=== PATIENT | male | born 1965 | race Caucasian/White ===

== ENCOUNTER 2016-10-27 18:22 | Observation (INO) | payer OTHER ==
[~2016-10-27] VITALS: Ht 170.2 cm; Wt 94.5 kg
[2016-10-27] MEDS ORDERED: ASPI81TA85 PO (18:38)
[2016-10-27] MEDS ORDERED: ROSU20TA PO (18:38)
[2016-10-27] MEDS ORDERED: METO-346 PO (18:38)
[2016-10-27] MEDS ORDERED: NS 1,000 ML IV ONE (20:00)
[2016-10-27] MEDS ORDERED: ONDANSETRON 4MG/2ML VIAL (J2405) IV ONE (20:00)
[2016-10-27] MEDS: MORPHINE 4 MG/ML 1ML SYRINGE IV PRN ×2 (20:00→20:30)
[2016-10-27 20:19] LABS: BASO % 0.5 % (0.0-1.0); EOS # 0.1 K/mm3 (0.0-0.50); LARGE UNSTAINED CELL # 0.1 K/mm3 (0.0-0.4); LARGE UNSTAINED CELL % 1.2 % (0.0-4.0); LYMPH # 1.4 K/mm3 (1.5-4.5); MEAN CORPUSCULAR HEMOGLOBIN 32.4 pg (27.0-33.0); MEAN CORPUSCULAR HGB CONC 35.1 g/dl (32.0-36.5); MEAN CORPUSCULAR VOLUME 92.4 fl (80.0-96.0); MONO # 0.5 K/mm3 (0.0-0.8); MONO % 6.5 % (0.0-5.0); NEUTROPHILS % 71.9 % (36.0-66.0); PLATELET COUNT, AUTOMATED 141 k/mm3 (150-450); RED CELL DISTRIBUTION WIDTH 12.5 % (11.5-14.5); WHITE BLOOD COUNT 6.9 K/mm3 (4.0-10.0)
[2016-10-27 20:36] LABS: ALBUMIN 3.9 GM/DL (3.2-5.2); ALKALINE PHOSPHATASE 106 U/L (45-117); ALT/SGPT 150 U/L (12-78); ANION GAP 8 MEQ/L (8-16); AST/SGOT 189 U/L (15-37); BILIRUBIN,DIRECT 0.6 MG/DL (0.0-0.2); BILIRUBIN,TOTAL 2.3 MG/DL (0.2-1.0); BLOOD UREA NITROGEN 14 MG/DL (7-18); CALCIUM LEVEL 9.1 MG/DL (8.5-10.1); CARBON DIOXIDE LEVEL 27 MEQ/L (21-32); CHLORIDE LEVEL 106 MEQ/L (98-107); CREATININE FOR GFR 1.12 MG/DL (0.70-1.30); GLOMERULAR FILTRATION RATE > 60.0 (>56); GLUCOSE, FASTING 168 MG/DL (70-105); POTASSIUM SERUM 3.9 MEQ/L (3.5-5.1); SODIUM LEVEL 141 MEQ/L (136-145); TOTAL PROTEIN 6.9 GM/DL (6.4-8.2)
--- NOTE | 2016-10-27 20:53 | ECGEPIP ---
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
--- NOTE | 2016-10-27 21:20 | REPUSA ---
Clinical history: Right upper quadrant pain. Findings: The pancreas is limited in visualization secondary to overlying bowel gas. The liver demons trates uniform echotexture and echogenicity, with no mass lesions. The gallbladder is distended but o therwise unremarkable. A sonographic Johnson's sign was elicited. There is no gallbladder wall thicken ing. However, the common bile duct is dilated, measuring 9 mm. The right kidney measures 10.6 cm in l ength and is unremarkable. There is no ascites. Impression: 1. Distended gallbladder,, with positive sonographic Johnson's sign. No gallstones, gallbladder wall t hickening or pericholecystic free fluid. Biliary ductal dilatation is noted as well If there is moises nued clinical concern, MRCP to evaluate the biliary ducts would be helpful.
[2016-10-27] MEDS ORDERED: ASPI81TAEC PO (22:27)
[2016-10-27] MEDS ORDERED: VITMTA PO (22:27)
[2016-10-27] MEDS ORDERED: ACETAMINOPHEN TAB 650MG DOSE (2X325MG) PO PRN (23:15)
[2016-10-27] MEDS ORDERED: ONDANSETRON 4MG/2ML VIAL (J2405) IV PRN (23:15)
[2016-10-27] MEDS: LR 1,000 ML IV SCH (23:15)
[2016-10-27] MEDS: MORPHINE 2 MG/ML 1ML SYRINGE IV PRN (23:20)
[2016-10-27 23:45] VITALS: BP 155/81
[2016-10-28] MEDS: MORPHINE 2 MG/ML 1ML SYRINGE IV PRN ×2 (01:31→04:13)
--- NOTE | 2016-10-28 06:40 | CR.PDOC ---
[facility] Consultation Consultation DATE OF CONSULTATION: Oct 27, 2016 at 18:22 PRIMARY CARE PHYSICIAN: None REFERRING PROVIDER: Dr Arvind Ingram ATTENDING PHYSICIAN: Dr. Vasquez Dickerson REASON FOR CONSULTATION/CHIEF COMPLAINT: Pre-op risk stratification. HISTORY OF PRESENT ILLNESS: Pt is a 51 year-old male with PMH of PERRIN with cirrhosis, HTN, hyperlipidemia, CAD s/p AZ with stents and bypass all in 2009 who presents with abd pain. Pt reports progressively worsening RUQ pain. Pain worse with eating, but no n/v, fevers/chills, diarrhea. Since pt's CABG in 2009 he has occasional chest discomfort, but no exertional cp and no typical chest pain. He does follow with a certified hyperbaric technologist in [place]. ALLERGIES: Please see below. HOME MEDICATIONS: Please see below. PAST MEDICAL HISTORY: 1. PERRIN. 2. Cirrhosis. 3. CAD. 4. HTN 5. Hyperlipidemia. 6. Nephrolithiasis PAST SURGICAL HISTORY: 1. PCI with stent (2009) 2. CABG (2009) FAMILY HISTORY: Non-contributory SOCIAL HISTORY: Tobacco use: ex-smoker ETOH: none REVIEW OF SYSTEMS: CONSTITUTIONAL: Anorexia. HEENT: Neg. CARDIOVASCULAR: Occasional atypical CP. RESPIRATORY: Neg. GENITOURINARY: Neg. MUSCULOSKELETAL: Neg. GASTROINTESTINAL: Abd pain, distention. SKIN: Neg. NEUROLOGICAL: Neg. PSYCHIATRIC: Neg. ENDOCRINE: Neg. HEMATOLOGIC/LYMPHATIC: Neg. ALLERGIC/IMMUNOLOGIC: Neg. PHYSICAL EXAMINATION: VITAL SIGNS: Please see below. GENERAL APPEARANCE: Middle-age male in mild distress. HEENT: Moist mucous membranes. RESPIRATORY: CTA B/L. No wheezes/rales/rhonchi appreciated. CARDIOVASCULAR: Nml S1 S2. No murmur/gallop/rub appreciated. ABDOMEN: Soft. Tender with mild palpation and voluntary guarding. Hypoactive BS. EXTREMITIES: No clubbing/cyanosis/edema. NEUROLOGICAL: CN II-XII grossly intact. AAOx3. Strength 5/5 and equal throughout. PSYCHIATRIC: Normal. LABORATORY DATA: Please see below. ASSESSMENT/PLAN: This is a 51 year-old male with PMH of PERRIN with cirrhosis, HTN , hyperlipidemia, CAD s/p AZ with stents and bypass all in 2009 who presents with abd pain and acute cholecystitis. 1. CAD with CABG (2009) While pt has known disease and had cabg he does not have typical cp and it has been 10yrs since his prior event. Pt's ECG (reviewed by me) NSR @80 with an incomplete LBBB and evidence of his prior AZ. Pt has hx of prior AZ and CABG, but no evidence of unstable angina/typical chest pain which puts him at intermediate risk. Pt may require cholecystectomy (intermediate risk procedure). Given his good MET (>4), he may proceed to OR without additional cardiac work- up. Continue crestor. Continue metoprolol. Resume aspirin as soon as no surgical contraindication. Thank you for allowing us to help in the care of this pt. Will follow with you. Vital Signs/I&O Vital Signs Date Time Temp Pulse Resp B/P (MAP) Pulse Ox O2 Delivery O2 Flow Rate FiO2 10/28/16 04:23 18 10/27/16 23:45 98.8 70 155/81 (105) 98 Room Air I&O- Last 24 Hours up to 6 AM 10/28/16 06:00 Output Total 300 ml Balance -300 ml Laboratory Data Labs 24H Laboratory Tests 2 10/27/16 19:54: White Blood Count 6.9, Red Blood Count 4.80, Hemoglobin 15.6, Hematocrit 44.3, Mean Corpuscular Volume 92.4, Mean Corpuscular Hemoglobin 32.4, Mean Corpuscular Hemoglobin Concent 35.1, Red Cell Distribution Width 12.5, Platelet Count 141L, Neutrophils (%) (Auto) 71.9H, Lymphocytes (%) (Auto) 19.0L, Monocytes (%) (Auto) 6.5H, Eosinophils (%) (Auto) 1.0, Basophils (%) (Auto) 0.5 , Neutrophils # (Auto) 5.0, Lymphocytes # (Auto) 1.4L, Monocytes # (Auto) 0.5, Eosinophils # (Auto) 0.1, Basophils # (Auto) 0.0, Large Unclassified Cells % 1.2 , Large Unclassified Cells # 0.1, Anion Gap 8, Glomerular Filtration Rate > 60.0 , Calcium Level 9.1, Aspartate Amino Transf (AST/SGOT) 189H, Alanine Aminotransferase (ALT/SGPT) 150H, Alkaline Phosphatase 106, Total Bilirubin 2.3H , Direct Bilirubin 0.6H, Total Creatine Kinase 215, Creatine Kinase MB 2.1, Creatine Kinase MB Relative Index 0.97, Troponin I < 0.02, Total Protein 6.9, Albumin 3.9, Albumin/Globulin Ratio 1.30, Lipase 149 CBC/BMP Laboratory Tests 10/27/16 19:54 Red Blood Count 4.80, Mean Corpuscular Volume 92.4, Mean Corpuscular Hemoglobin 32.4, Mean Corpuscular Hemoglobin Concent 35.1, Red Cell Distribution Width 12.5 , Neutrophils (%) (Auto) 71.9 H, Lymphocytes (%) (Auto) 19.0 L, Monocytes (%) ( Auto) 6.5 H, Eosinophils (%) (Auto) 1.0, Basophils (%) (Auto) 0.5, Neutrophils # (Auto) 5.0, Lymphocytes # (Auto) 1.4 L, Monocytes # (Auto) 0.5, Eosinophils # (Auto) 0.1, Basophils # (Auto) 0.0 Allergies Coded Allergies: Atropine (Verified Allergy, Unknown, 10/27/16) Hyoscyamine (Verified Allergy, Unknown, 10/27/16) Phenobarbital (Verified Allergy, Unknown, 10/27/16) Scopolamine (Verified Allergy, Unknown, 10/27/16) Home Medications Scheduled Aspirin (Aspirin EC) 81 Mg Tabec, 81 MG PO DAILY, (Reported) Metoprolol Tartrate (Metoprolol Tartrate) 12.5 Mg Halftab, 12.5 MG PO BID, ( Reported) Multivitamins *[facility] STOCKED* (Thera M Plus *[facility] STOCKED*) 1 Tab Tab, 1 TAB PO DAILY, (Reported) Rosuvastatin Calcium (Rosuvastatin Calcium) 20 Mg Tab, 20 MG PO QHS, (Reported) Vasquez Dickerson MD Oct 28, 2016 06:19
[2016-10-28] MEDS: LR 1,000 ML IV SCH ×2 (07:46→16:16)
[2016-10-28 08:00] VITALS: BP 142/86
[2016-10-28 08:49] LABS: BASO % 0.7 % (0.0-1.0); EOS # 0.1 K/mm3 (0.0-0.50); EOS % 1.6 % (0.0-3.0); LARGE UNSTAINED CELL # 0.1 K/mm3 (0.0-0.4); LARGE UNSTAINED CELL % 1.2 % (0.0-4.0); LYMPH # 1.3 K/mm3 (1.5-4.5); LYMPH % 32.5 % (24.0-44.0); MEAN CORPUSCULAR HEMOGLOBIN 32.5 pg (27.0-33.0); MEAN CORPUSCULAR HGB CONC 35.6 g/dl (32.0-36.5); MEAN CORPUSCULAR VOLUME 91.3 fl (80.0-96.0); MONO # 0.3 K/mm3 (0.0-0.8); MONO % 7.8 % (0.0-5.0); NEUTROPHILS # 2.2 K/mm3 (1.8-7.7); NEUTROPHILS % 56.3 % (36.0-66.0); PLATELET COUNT, AUTOMATED 106 k/mm3 (150-450); RED CELL DISTRIBUTION WIDTH 12.3 % (11.5-14.5); WHITE BLOOD COUNT 3.9 K/mm3 (4.0-10.0)
[2016-10-28 09:50] LABS: ALBUMIN 3.6 GM/DL (3.2-5.2); ALBUMIN/GLOBULIN RATIO 1.38 (1.00-1.93); ALKALINE PHOSPHATASE 109 U/L (45-117); ALT/SGPT 208 U/L (12-78); ANION GAP 8 MEQ/L (8-16); AST/SGOT 185 U/L (15-37); BILIRUBIN,DIRECT 0.9 MG/DL (0.0-0.2); BILIRUBIN,TOTAL 3.1 MG/DL (0.2-1.0); BLOOD UREA NITROGEN 10 MG/DL (7-18); CALCIUM LEVEL 8.5 MG/DL (8.5-10.1); CARBON DIOXIDE LEVEL 26 MEQ/L (21-32); CHLORIDE LEVEL 106 MEQ/L (98-107); CREATININE FOR GFR 0.99 MG/DL (0.70-1.30); GLOMERULAR FILTRATION RATE > 60.0 (>56); GLUCOSE, FASTING 120 MG/DL (70-105); POTASSIUM SERUM 3.8 MEQ/L (3.5-5.1); SODIUM LEVEL 140 MEQ/L (136-145); TOTAL PROTEIN 6.2 GM/DL (6.4-8.2)
[2016-10-28] MEDS: MORPHINE 4 MG/ML 1ML SYRINGE IV PRN ×2 (12:49→15:46)
--- NOTE | 2016-10-28 14:04 | REP ---
MRCP EXAMINATION: HISTORY: Elevated bilirubin. Dilated CBD. Comparison is made with sonography from October 27, [address] study of the abdomen from December 01, 2015. TECHNIQUE: Coronal T2 TRUE FISP and axial T2 HASTE imaging sequences are acquired. In addition, a 3D T2-weighted MRCP examination is acquired and maximal intensity projection images are generated. Coronal source images are reviewed and maximal intensity projection images are generated and reviewed rotationally. MRCP FINDINGS: Intrahepatic biliary radicals are not dilated. The gallbladder is mildly dilated but no stone or polyp is seen. No gallbladder mass is observed. The common bile duct measures 0.8 cm in greatest diameter, which is mildly dilated. The main pancreatic duct is normal. No choledocholithiasis or common bile duct stricture is seen. IMPRESSION: Mildly prominent common bile duct and gallbladder. No stone or mass lesion is seen. Signed by Alfredito Reynolds MD 10/28/2016 05:03 P
[2016-10-28] MEDS ORDERED: NORCO, ANEXSIA 5/325MG TABLET (HYDROcodone/ACETAMINOPHEN) PO PRN (14:45)
--- NOTE | 2016-10-28 15:17 | HPE ---
DATE OF ADMISSION: 10/27/2016 CHIEF COMPLAINT: Right upper quadrant abdominal pain. HISTORY OF PRESENT ILLNESS: This patient is a 51-year-old male with significant past history of nonalcoholic fatty liver disease (PERRIN) with cirrhosis, hypertension, hyperlipidemia and coronary artery disease status post stent and triple bypass. He presents to the emergency room with increasing right upper quadrant abdominal pain that started on Wednesday morning. The pain got worse with eating. No nausea, vomiting, fevers, chills. No diarrhea or constipation. No heartburn or acid reflux. He has never had any pain or symptoms like this ever in the past. Denies any history of alcohol usage within the past few years. No recent travel or injury to the abdomen. No recent illness. No change in medications. The pain was fairly constant. It was not positional. No change with food. PAST MEDICAL HISTORY: Nonalcoholic fatty liver disease (PERRIN) Cirrhosis. Coronary artery disease. Hypertension. Hyperlipidemia. Nephrolithiasis. PAST SURGICAL HISTORY: Cardiac stents followed by triple bypass in 2009. ALLERGIES: ATROPINE, HYOSCYAMINE, PHENOBARBITAL, SCOPOLAMINE. HOME MEDICATIONS: Please seen medical record. SOCIAL HISTORY: Denies drug, alcohol, or tobacco usage. FAMILY HISTORY: Noncontributory. REVIEW OF SYSTEMS: Pertinent positives and negatives, please see history of present illness (HPI). PHYSICAL EXAMINATION: General: Oriented times three in no acute distress. VITAL SIGNS: Temperature 97.8, pulse 65, respirations 18, blood pressure 142/86, pulse ox 98% in room air. HEENT: Pupils equal, round, and reactive to light and accommodation. HEART: S1, S2. Regular rate and rhythm. LUNGS: Clear to auscultation bilaterally. ABDOMEN: Soft, tender to palpation, right upper quadrant. Localized guarding. No rebounding. No signs of peritonitis. EXTREMITIES: No clubbing, cyanosis or edema. LABORATORY DATA: White count 3.9, hemoglobin 14.7, platelets 106. Potassium 3.8, total bilirubin 2.3 yesterday, 3.1 this morning. Direct bilirubin 0.6 yesterday, up to 0.9 this morning. Lipase 149. IMAGING: Ultrasound of the gallbladder shows a dilated gallbladder. No wall thickening. No signs of pericholecystic fluid. There is a positive sonographic Johnson's sign. There is also dilated common bile duct at 9 mm. MRCP shows a mildly prominent common bile duct and gallbladder. No signs of any stones or masses or choledocholithiasis. ASSESSMENT/PLAN: The patient is a 51-year-old male with a history of hypertension, coronary artery disease, myocardial infarction ([place]) who presents with a sudden onset of right upper quadrant abdominal pain. This could be secondary to a gallstone that he has passed, however, it could also be some sort of viral irritation of his PERRIN. From admission to the emergency room to this morning, his liver enzymes have gone up, however, his pain has improved. So he may have passed the stone overnight. MRCP was negative for any signs of choledocholithiasis but ultrasound and MRCP do both show dilated common bile duct. At this point, since his pain has improved, we will start him on a clear liquid diet, repeat his bilirubins in the morning. If they are showing signs of improvement, then he will be discharged home and followup as an outpatient. However, if his bilirubins continue to rise or they stay elevated, then I have already talked with Dr. Dixon who would agree to see him and consider possible ERCP during this admission.
[2016-10-28 16:00] VITALS: BP 142/84
[2016-10-28] MEDS: HEPARIN SOD (PORCINE) 5000 UNITS/ML VIAL SC SCH ×2 (16:16→21:56)
[2016-10-28] MEDS: PANTOPRAZOLE 40MG INJ (PROTONIX) (C9113) IV SCH (16:16)
[2016-10-28 20:00] VITALS: BP 149/80
[2016-10-28] MEDS: SENOKOT S TAB PO SCH (21:00)
[2016-10-29] VITALS: BP 139/79
[2016-10-29] MEDS: LR 1,000 ML IV SCH ×2 (00:16→07:57)
[2016-10-29] MEDS: HEPARIN SOD (PORCINE) 5000 UNITS/ML VIAL SC SCH (06:00)
[2016-10-29 06:57] LABS: MEAN CORPUSCULAR HGB CONC 36.4 g/dl (32.0-36.5); MEAN CORPUSCULAR VOLUME 90.7 fl (80.0-96.0); RED CELL DISTRIBUTION WIDTH 12.5 % (11.5-14.5); WHITE BLOOD COUNT 3.8 K/mm3 (4.0-10.0)
[2016-10-29 07:16] LABS: ALBUMIN 3.4 GM/DL (3.2-5.2); ALBUMIN/GLOBULIN RATIO 1.13 (1.00-1.93); ALKALINE PHOSPHATASE 111 U/L (45-117); ALT/SGPT 152 U/L (12-78); ANION GAP 7 MEQ/L (8-16); AST/SGOT 90 U/L (15-37); BILIRUBIN,DIRECT 0.5 MG/DL (0.0-0.2); BLOOD UREA NITROGEN 10 MG/DL (7-18); CALCIUM LEVEL 8.7 MG/DL (8.5-10.1); CARBON DIOXIDE LEVEL 28 MEQ/L (21-32); CHLORIDE LEVEL 105 MEQ/L (98-107); CREATININE FOR GFR 1.03 MG/DL (0.70-1.30); GLOMERULAR FILTRATION RATE > 60.0 (>56); GLUCOSE, FASTING 105 MG/DL (70-105); MAGNESIUM LEVEL 1.9 MG/DL (1.8-2.4); POTASSIUM SERUM 4.2 MEQ/L (3.5-5.1); SODIUM LEVEL 140 MEQ/L (136-145); TOTAL PROTEIN 6.4 GM/DL (6.4-8.2)
[2016-10-29 08:00] VITALS: BP 133/77
[2016-10-29] MEDS: PANTOPRAZOLE 40MG INJ (PROTONIX) (C9113) IV SCH (08:25)
[2016-10-29] MEDS: SENOKOT S TAB PO SCH (08:29)
--- NOTE | 2016-10-29 12:57 | DSES ---
DATE OF ADMISSION: 10/27/2016 DATE OF DISCHARGE: 10/29/2016 ADMISSION DIAGNOSIS: Right upper quadrant pain. DISCHARGE DIAGNOSIS: Right upper quadrant pain. HOSPITAL COURSE: The patient is a 51-year-old male with nonalcoholic steatohepatitis who presented to emergency room with right upper quadrant abdominal pain that started on October 26. The pain was persistent and did not improve with any positioning or change with any diet. He came in the emergency room, had an ultrasound which showed dilated gallbladder and a dilated common bile duct as well as elevated LFTs. His LFTs are normally elevated at baseline; however, these were still slightly elevated compared to his normal. So, he was admitted to hospital with the right upper quadrant pain to evaluate for possible gallbladder disease, possible choledocholithiasis. MRCP was completed which did not show any signs of stones in the duct or masses in the head of the pancreas and it just showed the dilated common bile duct again and dilated gallbladder. No signs of the gallbladder wall thickening or pericholecystic fluid. When I saw him in the afternoon of 10/28, his abdominal pain was improved, so we start him on diet. He tolerated the diet well. This morning 10/29, he denies any pains at all. No nausea or vomiting. Tolerating diet and his LFTs are continuing to trend down. His bilirubins are still slightly elevated however, they are improved from admission. Plan is to discharge home today. Regular diet. Activity as tolerated. If his pain returns in the near future, I asked him to followup with me in the office. We will probably evaluate him with a HIDA scan to check for gallbladder function and if we find any abnormalities we will discuss surgery at that time.
== END 2016-10-29 11:00 | disposition home or self-care (01) ==
LOC: M ED 18:22 → M ED INP 21:45 → M PED 23:50
PROVIDERS: ADMIT Surgery; ATTEND Surgery
DX: R10.11 Right upper quadrant pain (principal); K75.81 Nonalcoholic steatohepatitis (NASH); K74.60 Unspecified cirrhosis of liver; I10 Essential (primary) hypertension; E78.4 Other hyperlipidemia; I25.10 Atherosclerotic heart disease of native coronary artery without angina pectoris; I25.2 Old myocardial infarction; Z98.61 Coronary angioplasty status; Z95.1 Presence of aortocoronary bypass graft; Z87.891 Personal history of nicotine dependence; Z88.8 Allergy status to other drugs, medicaments and biological substances; Z79.82 Long term (current) use of aspirin; Z79.899 Other long term (current) drug therapy
CPT/HCPCS: 36415; 74181; 76705; 80048; 80053; 80076; 82248; 82550; 82553; 83690; 83735; 85025; 85027; 93005; 93041; 96372; 96374; 96375; 96376; 99285; C9113; J2405